=== PATIENT | male | born 1995 | race Caucasian/White ===

== ENCOUNTER 2022-07-19 11:00 | Day surgery (SDC) | payer OTHER, BC ==
[2022-07-17 13:34] VITALS: BMI 25.0
[~2022-07-19 11:00] MED LIST: DEXAMETHASONE SOD PHOSPHATE 4 MG/ML 1 ML VIAL IV PRN; MELOXICAM 7.5 MG TAB PO PRN; ONDANSETRON 4 MG/2 ML VIAL IVP PRN; metroNIDAZOLE-NS PMX 500 MG in SALINE 1 100ML.BAG IVPB PRN
[2022-07-19] MEDS: OXYMETAZOLINE 0.05% NASL SPRAY 1 SPRAY BOTTLE EA NOSTRIL PRN ×5 (11:23→11:43)
[2022-07-19 11:27] VITALS: RESP 16
[2022-07-19] MEDS ORDERED: LACTATED RINGERS 1,000 ML IV ONE (11:30)
[2022-07-19] MEDS: FAMOTIDINE 20 MG/2 ML VIAL IV PRN ×2 (11:44→11:45)
[2022-07-19] MEDS ORDERED: fentaNYL (PF) 50 MCG/ML 2 ML AMP ONE (12:42)
[2022-07-19] MEDS ORDERED: ROCURONIUM 10 MG/ML (5 ML VIAL) IV ONE (12:42)
[2022-07-19] MEDS ORDERED: MIDAZOLAM 2 MG/2 ML VIAL ONE (12:42)
[2022-07-19] MEDS ORDERED: PROPOFOL 10 MG/ML 20 ML VIAL IV ONE (12:42)
[2022-07-19] MEDS ORDERED: HYDROmorphone (PF) 1 MG/ML ONE (12:42)
[2022-07-19] MEDS ORDERED: LIDOCAINE 2% INJ 20 MG/ML (2 ML VIAL) ONE (12:42)
[2022-07-19] MEDS ORDERED: BUPIVACAIN-EPI 0.25%-1:200,000 30 ML VIAL SQ ONE (13:07)
[2022-07-19] MEDS ORDERED: LIDOCAINE 1%-EPI 1:100,000 20 ML VIAL SUBMUCOSAL ONE (13:07)
[2022-07-19 14:05] VITALS: TEMP 98
--- NOTE | 2022-07-19 14:16 | P.OP ---
Date of Procedure: 07/19/22 Preoperative Diagnosis: Closed nasal bone and septal fracture with external nasal deformity and deviated nasal septum Postoperative Diagnosis: Same Procedure(s) Performed: Septoplasty Closed reduction of the nasal bone fracture with stabilization Anesthesia: EVE Surgeon: Jose Rajan Estimated Blood Loss (ml): 5 Pathology: other (Sinonasal) Condition: stable Disposition: PACU Indications for Procedure: This patient has a fractured nose and correction was requested he had a severe box nose deformity along with a deviated nasal septum from the fracture. Surgical correction was offered. All risks, benefits, and alternative therapies were discussed. Consent was obtained and all questions were answered. Operative Findings: Box nose deformity with a comminuted nasal bone fracture is severe right septal deformity from fracture with occlusion over 90% occluded Description of Procedure: Prior to surgery all risks, benefits, and alternative therapies were discussed. Risks of bleeding, infection, need for secondary surgery, nasal obstruction, loss of sense of smell, anesthetic risks etc. etc. were explained. Consent was obtained and all questions were answered. Patient was taken to the operative room and placed in the supine position. A general inhalation anesthetic was administered to the patient by mask and subsequently intubated with a cuffed endotracheal tube by the department of anesthesia with a functioning IV line in place. The patient was monitored throughout the entire case by the department of anesthesia. We did a ring block around the patient's nose with lidocaine 1% with epinephrine 1 100,000. 10 minutes were allowed wait for full vasoconstrictive effects to take place. At this time a ring block was performed around the nose. A caudal incision was made over the caudal portion of the left septum down to the mucoperichondrium. A mucoperichondrial flap was developed to the extent of visualization on the left and a crossover incision was made with for the mucoperichondrial flap development to the extent of visualization on the contralateral side. With use of crosshatching incisions the septum was straightened and placed back in the midline. After the septum was straightened and placed back in the midline the incision was closed with a 4 rapid Vicryl in a quilting stitch was used to reapproximate the septal flaps and the septum was stabilized the vomerian groove in the midline. After the septum was straightened we used a Boyes nasal elevator to straighten the external nose. We corrected the external nasal deformity and fractured nose with a Boyes elevator and straighten it. Roth splints placed. Stabilization performed. The nose was then taped and casted in usual fashion. Follow-up will be in the office in 1 week. The patient is to contact me if any problems should arise.
[2022-07-19] MEDS ORDERED: oxyCODONE-APAP 5-325MG 1 EACH TAB ONE (15:56)
[2022-07-19] MEDS ORDERED: oxyCODONE-APAP 5-325MG 1 EACH TAB PO ONE (15:59)
[2022-07-19 16:35] VITALS: BP 115/76; PULSE 85
== END 2022-07-19 17:11 | disposition home or self-care (01) ==
LOC: OR 11:00
PROVIDERS: ATTEND Otolaryngology
DX: S02.2XXA Fracture of nasal bones, initial encounter for closed fracture (principal); Y93.9 Activity, unspecified; V89.9XXA Person injured in unspecified vehicle accident, initial encounter; J34.2 Deviated nasal septum; M95.0 Acquired deformity of nose; J34.89 Other specified disorders of nose and nasal sinuses; F17.200 Nicotine dependence, unspecified, uncomplicated; G43.909 Migraine, unspecified, not intractable, without status migrainosus; Z90.79 Acquired absence of other genital organ(s); Z79.1 Long term (current) use of non-steroidal anti-inflammatories (NSAID); Z82.49 Family history of ischemic heart disease and other diseases of the circulatory system
CPT/HCPCS: 30520; 21320; J2250; J1100; J0690; J2405; J3010; J1170; J2704; J2001; 88300